=== PATIENT | male | born 1935 | race Caucasian/White ===

== ENCOUNTER 2019-01-28 15:37 | Observation (INO) ==
[2019-01-28 16:18] LABS: Basophils # 0.1 10*3/uL (0.0-0.2); Basophils % 0.8 % (0.0-0.8); Eosinophils # 0.3 10*3/uL (0.0-0.87); Hematocrit 40.2 VOL% (42.0-52.0); Hemoglobin 13.7 GM/DL (14.0-18.0); Immature Granulocytes % 0.3 %; Immature Granulocytes Absolute 0.02 #; Lymphocytes # 1.7 10*3/uL (1.4-4.0); Lymphocytes % 27.4 % (21.2-54.2); Mean Corpuscular HGB Conc 34.1 GM/DL (32-36); Mean Corpuscular Volume 93.3 FL (87-102); Mean Platelet Volume 11.3 FL (9.6-12.0); Monocytes % 10.4 % (1.7-12.7); Neutrophils % 56.1 % (38.7-73.9); Platelet Count 187 T/CUMM (130-400); Red Blood Count 4.31 MC/CUMM (3.8-5.5); Red Cell Distribution Width 11.9 % (9.3-17.3); White Blood Count 6.2 T/CUMM (4-12)
[2019-01-28 16:48] LABS: Albumin 3.6 G/DL (3.4-5.0); Bilirubin,Total 0.4 MG/DL (0.2-1.0); Calcium 9.3 MG/DL (8.5-10.1); Osmolality,Calculated 288.1 MOS/KG (273-304)
[2019-01-28] MEDS ORDERED: ACETAMINOPHEN 325 MG TABLET PO PRN (17:17)
[2019-01-28] MEDS ORDERED: ONDANSETRON 4 MG/2 ML VIAL IV PRN (17:17)
[2019-01-28 19:13] LABS: Troponin I < 0.015 NG/ML (0.00-0.045)
[2019-01-28] MEDS ORDERED: CALCIUM CARBONATE CHEW 500 MG TABLET PO PRN (19:24)
[2019-01-28] MEDS ORDERED: NITROGLYCERIN SL 0.4 MG TABLET SL PRN (19:24)
[2019-01-28] MEDS ORDERED: MORPHINE 4 MG/1 ML VIAL IV PRN (19:24)
[2019-01-28] MEDS ORDERED: DEXTROSE 50% 25 GM/50 ML VIAL IV PRN (19:24)
[2019-01-28] MEDS ORDERED: GLUCAGON 1 MG VIAL IM PRN (19:24)
[2019-01-28] MEDS ORDERED: NALOXONE 0.4 MG/ML VIAL IV PRN (19:24)
[2019-01-28] MEDS ORDERED: ZALEPLON 5 MG CAPSULE PO PRN (19:24)
[2019-01-28] MEDS ORDERED: ENOXAPARIN 40 MG/0.4 ML SYRINGE SUBCUT SCH (20:00)
[2019-01-28] MEDS: SODIUM CHLORIDE 0.45% 1,000 ML IV SCH (20:51)
[2019-01-28] MEDS: DOCUSATE SODIUM 100 MG CAPSULE PO SCH ×2 (20:52→20:56)
[2019-01-28] MEDS: glipiZIDE 10 MG TABLET PO SCH (20:52)
[2019-01-28] MEDS ORDERED: ATORVASTATIN 80 MG TABLET PO SCH (21:00)
[2019-01-28] MEDS: INSULIN LISPRO 100 UNIT/ML SUBCUT SCH (21:05)
[2019-01-28 22:03] LABS: Troponin I < 0.015 NG/ML (0.00-0.045)
[2019-01-29 01:24] LABS: Troponin I < 0.015 NG/ML (0.00-0.045)
[2019-01-29 06:13] LABS: Risk Ratio 2.31; VLDL CHOLESTEROL 16.2 MG/DL
[2019-01-29 06:53] LABS: Troponin I < 0.015 NG/ML (0.00-0.045)
[2019-01-29 08:05] VITALS: BP 133/73
[2019-01-29] MEDS ORDERED: FERROUS SULFATE 325 MG TABLET PO SCH (09:00)
[2019-01-29] MEDS ORDERED: CHLORTHALIDONE 25 MG TABLET PO SCH (09:00)
[2019-01-29] MEDS ORDERED: ASPIRIN 325 MG TABLET PO SCH (09:00)
[2019-01-29] MEDS ORDERED: CELECOXIB 200 MG CAPSULE PO SCH (09:00)
[2019-01-29] MEDS ORDERED: SIMETHICONE CHEW 125 MG TABLET PO SCH (09:00)
[2019-01-29] MEDS ORDERED: CLOPIDOGREL 75 MG TABLET PO SCH (09:00)
[2019-01-29] MEDS ORDERED: ASPIRIN EC 81 MG TABLET PO SCH (09:00)
[2019-01-29] MEDS ORDERED: LOSARTAN 25 MG TABLET PO SCH (09:00)
[2019-01-29] MEDS ORDERED: amLODIPine 10 MG TABLET PO SCH (09:00)
[2019-01-29] MEDS ORDERED: PANTOPRAZOLE 40 MG TABLET PO SCH (09:00)
[2019-01-29] MEDS: INSULIN LISPRO 100 UNIT/ML SUBCUT SCH (09:10)
[2019-01-29] MEDS: glipiZIDE 10 MG TABLET PO SCH (09:11)
[2019-01-29] MEDS: DOCUSATE SODIUM 100 MG CAPSULE PO SCH ×2 (09:12→09:14)
[2019-01-29] MEDS: SODIUM CHLORIDE 0.45% 1,000 ML IV SCH (09:13)
== END 2019-01-29 11:05 | disposition home or self-care (01) ==
LOC: N.EDINP 15:37 → N.ED 15:37 → N.TELEN 18:03
PROVIDERS: ADMIT Family Medicine; ATTEND Family Medicine

== ENCOUNTER 2019-12-31 11:19 | Inpatient (IN) ==
[2019-12-31] MEDS ORDERED: SODIUM CHLORIDE 0.9% 1,000 ML IV STA (11:58)
[2019-12-31] MEDS ORDERED: ONDANSETRON 4 MG/2 ML VIAL IV STA (11:58)
[2019-12-31] MEDS ORDERED: DEXAMETHASONE 4 MG/1 ML VIAL IV STA (12:29)
[2019-12-31 12:44] LABS: Basophils % 0.2 % (0.0-0.8); Hematocrit 40.3 VOL% (42.0-52.0); Hemoglobin 13.7 GM/DL (14.0-18.0); Immature Granulocytes % 0.5 %; Immature Granulocytes Absolute 0.03 #; Lymphocytes # 1.2 10*3/uL (1.4-4.0); Lymphocytes % 18.7 % (21.2-54.2); Mean Corpuscular Volume 93.7 FL (87-102); Mean Platelet Volume 12.2 FL (9.6-12.0); Monocytes % 10.2 % (1.7-12.7); Neutrophils % 70.4 % (38.7-73.9); Platelet Count 131 T/CUMM (130-400); Red Cell Distribution Width 12.3 % (9.3-17.3); White Blood Count 6.3 T/CUMM (4-12)
[2019-12-31 12:53] LABS: Bilirubin,Urine Negative (Negative); Blood, Urine Negative (Negative); Glucose,Urine (UA) 50 mg/dL (Negative); Ketones,Urine 5 mg/dL (Negative); Mucus,Urine Occasional /LPF (Occasional); Nitrite,Urine Negative (Negative); Protein,Urine Negative; RBC,Urine 2 /HPF (0-4); Squamous Epithelial Cell,Urine Occasional /HPF (0-10); Urine Appearance CLEAR (Clear); Urine Color Yellow (Yellow); Urine Specific Gravity 1.017 (1.001-1.035); Urine Urobilinogen < 2.0 EU/DL (0.2-1.0); WBC,Urine <1 /HPF (0-6)
[2019-12-31 13:11] LABS: Albumin 3.2 G/DL (3.4-5.0); Bilirubin,Total 0.6 MG/DL (0.2-1.0); Calcium 8.6 MG/DL (8.5-10.1); Ferritin 418.2 ng/ml (26-388); Osmolality,Calculated 277.4 MOS/KG (273-304); Total Protein 7.4 G/DL (6.4-8.3)
[2019-12-31] MEDS ORDERED: AZITHROMYCIN INJ 500 MG in SODIUM CHLORIDE 0.9% 250 ML IV STA (13:15)
[2019-12-31] MEDS ORDERED: ONDANSETRON 4 MG/2 ML VIAL IV PRN (14:51)
[2019-12-31] MEDS ORDERED: ACETAMINOPHEN 325 MG TABLET PO PRN (14:51)
[2019-12-31] MEDS: SODIUM CHLORIDE 0.9% 1,000 ML IV SCH (16:11)
[2019-12-31] MEDS ORDERED: CALCIUM CARBONATE CHEW 500 MG TABLET PO PRN (18:39)
[2019-12-31] MEDS: DOCUSATE SODIUM 100 MG CAPSULE PO SCH (23:15)
[2019-12-31] MEDS: ATORVASTATIN 80 MG TABLET PO SCH (23:15)
[2019-12-31] MEDS: INSULIN LISPRO 100 UNIT/ML SUBCUT SCH (23:15)
[2019-12-31] MEDS: glipiZIDE 10 MG TABLET PO SCH (23:15)
[2019-12-31] MEDS: cefTRIAXone 1,000 MG in SYRINGE 1 EACH IV SCH (23:15)
[2019-12-31] MEDS: ASPIRIN EC 81 MG TABLET PO SCH (23:15)
[2020-01-01] MEDS: SODIUM CHLORIDE 0.9% 1,000 ML IV SCH ×3 (01:57→16:57)
[2020-01-01 05:23] LABS: Basophils % 0.2 % (0.0-0.8); Hematocrit 37.5 VOL% (42.0-52.0); Hemoglobin 12.8 GM/DL (14.0-18.0); Immature Granulocytes Absolute 0.04 #; Lymphocytes % 23.1 % (21.2-54.2); Mean Corpuscular HGB Conc 34.1 GM/DL (32-36); Mean Corpuscular Volume 92.4 FL (87-102); Mean Platelet Volume 12.3 FL (9.6-12.0); Monocytes % 15.3 % (1.7-12.7); Neutrophils % 60.4 % (38.7-73.9); Platelet Count 139 T/CUMM (130-400); Red Blood Count 4.06 MC/CUMM (3.8-5.5); Red Cell Distribution Width 12.2 % (9.3-17.3); White Blood Count 4.1 T/CUMM (4-12)
[2020-01-01 05:56] LABS: Albumin 2.8 G/DL (3.4-5.0); Bilirubin,Total 0.8 MG/DL (0.2-1.0); Calcium 8.2 MG/DL (8.5-10.1); Osmolality,Calculated 287.5 MOS/KG (273-304); Risk Ratio 2.32; Thyroid Stimulating Hormone 0.459 uIU/ml (0.358-3.74); Total Protein 6.5 G/DL (6.4-8.3); VLDL CHOLESTEROL 15.4 MG/DL
[2020-01-01 06:35] LABS: Sedimentation Rate-Westergren 31 MM/HR (0-20)
[2020-01-01] MEDS ORDERED: FERROUS SULFATE 325 MG TABLET PO SCH (09:00)
[2020-01-01] MEDS: CHLORTHALIDONE 25 MG TABLET PO SCH (09:04)
[2020-01-01] MEDS: DEXAMETHASONE 10 MG/1 ML VIAL IV SCH (09:04)
[2020-01-01] MEDS: PIOGLITAZONE 15 MG TABLET PO SCH (09:04)
[2020-01-01] MEDS: glipiZIDE 10 MG TABLET PO SCH ×2 (09:04→22:15)
[2020-01-01] MEDS: PANTOPRAZOLE 40 MG TABLET PO SCH (09:05)
[2020-01-01] MEDS: DOCUSATE SODIUM 100 MG CAPSULE PO SCH ×2 (09:05→22:15)
[2020-01-01] MEDS: LOSARTAN 25 MG TABLET PO SCH (09:05)
[2020-01-01] MEDS: CLOPIDOGREL 75 MG TABLET PO SCH (09:05)
[2020-01-01] MEDS: INSULIN LISPRO 100 UNIT/ML SUBCUT SCH ×4 (09:05→22:15)
[2020-01-01] MEDS: CELECOXIB 200 MG CAPSULE PO SCH (09:05)
[2020-01-01] MEDS: amLODIPine 10 MG TABLET PO SCH (09:05)
[2020-01-01] MEDS: ATORVASTATIN 80 MG TABLET PO SCH (22:15)
[2020-01-01] MEDS: AZITHROMYCIN INJ 250 MG in SODIUM CHLORIDE 0.9% 250 ML IV SCH (22:15)
[2020-01-01] MEDS: ASPIRIN EC 81 MG TABLET PO SCH (22:15)
[2020-01-01] MEDS: cefTRIAXone 1,000 MG in SYRINGE 1 EACH IV SCH (22:15)
[2020-01-02 05:45] LABS: Basophils % 0.1 % (0.0-0.8); Hematocrit 38.2 VOL% (42.0-52.0); Hemoglobin 12.8 GM/DL (14.0-18.0); Immature Granulocytes % 0.5 %; Immature Granulocytes Absolute 0.06 #; Lymphocytes # 1.2 10*3/uL (1.4-4.0); Lymphocytes % 10.2 % (21.2-54.2); Mean Corpuscular HGB Conc 33.5 GM/DL (32-36); Mean Corpuscular Volume 93.6 FL (87-102); Mean Platelet Volume 11.8 FL (9.6-12.0); Monocytes % 9.3 % (1.7-12.7); Neutrophils % 79.9 % (38.7-73.9); Platelet Count 155 T/CUMM (130-400); Red Blood Count 4.08 MC/CUMM (3.8-5.5); Red Cell Distribution Width 12.2 % (9.3-17.3); White Blood Count 11.6 T/CUMM (4-12)
[2020-01-02 06:17] LABS: Albumin 2.6 G/DL (3.4-5.0); Bilirubin,Total 0.4 MG/DL (0.2-1.0); Calcium 8.3 MG/DL (8.5-10.1); Osmolality,Calculated 291.1 MOS/KG (273-304); Total Protein 6.4 G/DL (6.4-8.3)
[2020-01-02] MEDS: SODIUM CHLORIDE 0.9% 1,000 ML IV SCH ×3 (06:20→16:52)
[2020-01-02] MEDS: CHLORTHALIDONE 25 MG TABLET PO SCH (08:42)
[2020-01-02] MEDS: LOSARTAN 25 MG TABLET PO SCH (08:42)
[2020-01-02] MEDS: DOCUSATE SODIUM 100 MG CAPSULE PO SCH ×2 (08:42→20:40)
[2020-01-02] MEDS: ZALEPLON 5 MG CAPSULE PO PRN ×2 (08:42→20:40)
[2020-01-02] MEDS: PIOGLITAZONE 15 MG TABLET PO SCH (08:42)
[2020-01-02] MEDS: CELECOXIB 200 MG CAPSULE PO SCH (08:42)
[2020-01-02] MEDS: amLODIPine 10 MG TABLET PO SCH (08:43)
[2020-01-02] MEDS: CLOPIDOGREL 75 MG TABLET PO SCH (08:43)
[2020-01-02] MEDS: glipiZIDE 10 MG TABLET PO SCH ×2 (08:43→20:40)
[2020-01-02] MEDS: PANTOPRAZOLE 40 MG TABLET PO SCH (08:43)
[2020-01-02] MEDS: INSULIN LISPRO 100 UNIT/ML SUBCUT SCH ×4 (08:43→20:40)
[2020-01-02] MEDS: DEXAMETHASONE 10 MG/1 ML VIAL IV SCH (08:43)
[2020-01-02] MEDS: ATORVASTATIN 80 MG TABLET PO SCH (20:40)
[2020-01-02] MEDS: ASPIRIN EC 81 MG TABLET PO SCH (20:40)
[2020-01-02] MEDS: cefTRIAXone 1,000 MG in SYRINGE 1 EACH IV SCH (20:45)
[2020-01-02] MEDS: AZITHROMYCIN INJ 250 MG in SODIUM CHLORIDE 0.9% 250 ML IV SCH (20:50)
[2020-01-03 06:03] LABS: Basophils % 0.1 % (0.0-0.8); Hemoglobin 12.7 GM/DL (14.0-18.0); Immature Granulocytes % 0.7 %; Immature Granulocytes Absolute 0.09 #; Lymphocytes % 7.8 % (21.2-54.2); Mean Corpuscular HGB Conc 34.3 GM/DL (32-36); Mean Corpuscular Volume 91.6 FL (87-102); Monocytes % 5.2 % (1.7-12.7); Neutrophils % 86.2 % (38.7-73.9); Platelet Count 168 T/CUMM (130-400); Red Blood Count 4.04 MC/CUMM (3.8-5.5); Red Cell Distribution Width 12.3 % (9.3-17.3); White Blood Count 13.3 T/CUMM (4-12)
[2020-01-03 06:29] LABS: Calcium 8.2 MG/DL (8.5-10.1)
[2020-01-03 07:27] VITALS: BP 122/86
[2020-01-03] MEDS ORDERED: methylPREDNISolone 4 MG TABLET PO SCH (08:00)
[2020-01-03] MEDS: INSULIN LISPRO 100 UNIT/ML SUBCUT SCH (08:12)
[2020-01-03] MEDS ORDERED: AZITHROMYCIN 250 MG TABLET PO SCH (09:00)
[2020-01-03] MEDS: PIOGLITAZONE 15 MG TABLET PO SCH (09:27)
[2020-01-03] MEDS: DOCUSATE SODIUM 100 MG CAPSULE PO SCH (09:27)
[2020-01-03] MEDS: CELECOXIB 200 MG CAPSULE PO SCH (09:27)
[2020-01-03] MEDS: amLODIPine 10 MG TABLET PO SCH (09:28)
[2020-01-03] MEDS: PANTOPRAZOLE 40 MG TABLET PO SCH (09:28)
[2020-01-03] MEDS: CHLORTHALIDONE 25 MG TABLET PO SCH (09:28)
[2020-01-03] MEDS: LOSARTAN 25 MG TABLET PO SCH (09:28)
[2020-01-03] MEDS: glipiZIDE 10 MG TABLET PO SCH (09:28)
[2020-01-03] MEDS: CLOPIDOGREL 75 MG TABLET PO SCH (09:28)
[2020-01-03] MEDS: DEXAMETHASONE 10 MG/1 ML VIAL IV SCH (09:28)
== END 2020-01-03 12:20 | disposition home health service (06) | DRG 177 ==
LOC: N.ED 11:19 → N.EDINP 13:57 → N.2E 14:55
PROVIDERS: ADMIT Family Medicine; ATTEND Family Medicine